=== PATIENT | male | born 1970 | race African-American/Black ===

== ENCOUNTER 2020-03-25 14:10 | Emergency (ER) | payer MEDICARE ==
[~2020-03-25] VITALS: Ht 180.3 cm; Wt 69.0 kg
--- NOTE | 2020-03-25 14:34 | NUR ---
PT STATES HE HAS BEEN OFF ANTIVIRALS FOR THE LAST TWO MONTHS. PT STATES HE CAME IN TODAY BECAUSE HE IS HAVING MUSCLE WEAKNESS, TINGLING IN ARMS AND LEGS, AND NOW HIS LEGS FEEL HEAVY.
--- NOTE | 2020-03-25 14:35 | NUR ---
PT WOULD LIKE TO MAKE A PASSWORD - [place].
[2020-03-25 15:30] LABS: BASOPHILS # (AUTO) 0.04 x10^3/uL (0-0.1); BASOPHILS % (AUTO) 1 % (0-1); EOSINOPHILS # (AUTO) 0.01 x10^3/uL (0-0.4); EOSINOPHILS % (AUTO) 0 % (1-7); LYMPHOCYTES # (AUTO) 1.63 x10^3/uL (1-3.4); LYMPHOCYTES % (AUTO) 34 % (22-44); MD NO; MEAN CORPUSCULAR HEMOGLOBIN 32.6 pg (27.5-34.5); MEAN CORPUSCULAR HGB CONC 32.6 g/dL (33.2-36.2); MEAN PLATELET VOLUME 7.1 fL (7.4-10.4); MONOCYTES # (AUTO) 0.63 x10^3/uL (0.2-0.8); MONOCYTES % (AUTO) 13 % (2-9); NEUTROPHILS # (AUTO) 2.44 x10^3/uL (1.8-6.8); NEUTROPHILS % (AUTO) 51 % (42-75); PLATELET COUNT 317 x10^3/uL (130-400); RED BLOOD COUNT 4.53 x10^6/uL (4.38-5.82); RED CELL DISTRIBUTION WIDTH 11.6 % (9.4-14.8)
[2020-03-25 15:41] LABS: ALANINE AMINOTRANSFERASE 23 U/L (12-78); ALBUMIN 4.6 g/dL (3.4-5.0); ANION GAP 6 mmol/L (5-15); CALCIUM 9.7 mg/dL (8.5-10.1); CHLORIDE 104 mmol/L (98-107); CREATININE 1.44 mg/dL (0.7-1.3)
[2020-03-25 15:43] LABS: ALKALINE PHOSPHATASE 87 U/L (45-117); BILIRUBIN,TOTAL 0.4 mg/dL (0.2-1.0); CREATINE KINASE, TOTAL 174 U/L (39-308); TOTAL PROTEIN 10.1 g/dL (6.4-8.2)
[2020-03-25 15:50] LABS: MICROSCOPIC AUTO
[2020-03-25 17:43] VITALS: BP 142/97
== END 2020-03-25 17:45 | disposition home or self-care (01) ==
LOC: ED 16:18
DX: G62.9 Polyneuropathy, unspecified (principal); R53.83 Other fatigue; R53.1 Weakness; M79.10 Myalgia, unspecified site; Z21 Asymptomatic human immunodeficiency virus [HIV] infection status
CPT/HCPCS: 36415; 80053; 81001; 82550; 85025; 87086; 93005; 99284